=== PATIENT | male | born 1980 | race Caucasian/White ===

== ENCOUNTER 2021-05-18 17:39 | Emergency (ER) | payer BC, OTHER ==
[~2021-05-18] VITALS: Ht 177.8 cm; Wt 79.4 kg
[2021-05-18 19:03] VITALS: BP 173/97
== END 2021-05-18 21:23 | disposition home or self-care (01) ==
LOC: ER 17:40
DX: S00.81XA Abrasion of other part of head, initial encounter (principal); V86.56XA Driver of dirt bike or motor/cross bike injured in nontraffic accident, initial encounter; Y93.89 Activity, other specified; Y92.89 Other specified places as the place of occurrence of the external cause; Y99.8 Other external cause status
CPT/HCPCS: 70450; 70486; 72125